=== PATIENT | male | born 1995 | race African-American/Black ===

== ENCOUNTER 2024-01-06 06:09 | Emergency (ER) | payer SELFPAY ==
[~2024-01-06] VITALS: Ht 180.3 cm; Wt 95.2 kg
[2024-01-06 06:16] VITALS: BP 112/76; PULSE 99; RESP 17; TEMP 99.2; O2SAT 96
[2024-01-06] MEDS: ACETAMINOPHEN 500 MG TAB PO ONE (06:52)
[2024-01-06] MEDS: cefTRIAXone SOD 1,000 MG VL IM ONE (06:53)
[2024-01-06] MEDS ORDERED: AZIT500T66 PO (06:58)
[2024-01-06] MEDS ORDERED: IBUP-1456 PO (06:58)
== END 2024-01-06 07:28 | disposition home or self-care (01) ==
LOC: ER 06:09
DX: J03.90 Acute tonsillitis, unspecified (principal); Z79.899 Other long term (current) drug therapy
CPT/HCPCS: 96372; 99283; J0696